=== PATIENT | male | born 1940 | race Caucasian/White ===

== ENCOUNTER 2020-07-07 09:35 | Inpatient (IN) | payer MEDICARE, OTHER ==
[~2020-07-07] VITALS: Ht 172.7 cm; Wt 90.5 kg
[~2020-07-07 09:35] MED LIST: ATROPINE EYE RIGHTEYE; DORZ10DR7 RIGHTEYE; GLYCOPYRROLATE 0.2MG/1ML, 5ML ONE; PRED5DRO2 RIGHTEYE
[2020-07-07] MEDS ORDERED: LIDOCAINE-MPF 1%, 2ML INFIL ONE (10:00)
[2020-07-07] MEDS ORDERED: LACTATED RINGERS 1,000 ML IV SCH (10:00)
[2020-07-07] MEDS ORDERED: CHLORHEXIDINE 15 ML UDC MM ONE (10:00)
[2020-07-07] MEDS ORDERED: FENTANYL PF 250 MCG/5ML ONE (10:21)
[2020-07-07] MEDS ORDERED: PROPOFOL 10 MG/ML, 20ML ONE (10:27)
[2020-07-07] MEDS ORDERED: CEFAZOLIN 1,000 MG ONE (10:27)
[2020-07-07] MEDS ORDERED: GEMCITABINE HCL 1,000 MG in SODIUM CHLORIDE 0.9% 23.7 ML IV ONE (11:00)
[2020-07-07] MEDS ORDERED: HYDROmorphone 1 MG/ML, 1ML INJ IVPush PRN (11:30)
[2020-07-07] MEDS ORDERED: morphine SULFATE 10 MG/ML, 1ML IVPush PRN (11:30)
[2020-07-07] MEDS ORDERED: OXYcodone 5 MG/5 ML ORAL.SOL UDC PO PRN (11:30)
[2020-07-07] MEDS ORDERED: ONDANSETRON 2MG/ML, 2ML IVPush PRN (11:30)
[2020-07-07] MEDS ORDERED: ACETAMINOPHEN 325 MG TABLET PO PRN ×2 (11:30→15:30)
[2020-07-07] MEDS ORDERED: LABETALOL 5MG/ML, 20ML IV PRN (11:30)
[2020-07-07] MEDS ORDERED: MEPERIDINE/PF 25MG/0.5ML IVPush PRN (11:30)
[2020-07-07] MEDS ORDERED: FENTANYL PF 100 MCG/2ML IV PRN (11:30)
[2020-07-07] MEDS ORDERED: OPIUM/BELLADONNA SUPP.RECT 16.2-60 MG ONE (12:10)
[2020-07-07] MEDS ORDERED: ENALAPRILAT 1.25 MG/ML, 2ML IV PRN (12:30)
[2020-07-07] MEDS: hydrALAzine 20 MG/ML, 1ML IV PRN ×2 (12:35→13:33)
[2020-07-07] MEDS ORDERED: OPIUM/BELLADONNA SUPP.RECT 16.2-30 MG PR PRN (15:30)
[2020-07-07] MEDS ORDERED: ONDANSETRON 2MG/ML, 2ML IV PRN (15:30)
[2020-07-07] MEDS ORDERED: HYDROcodone/APAP 5/325 TABLET PO PRN (15:30)
[2020-07-07] MEDS: SODIUM CHLORIDE 0.9% 1,000 ML IV SCH (16:16)
[2020-07-07 19:30] VITALS: BP 139/78
[2020-07-07] MEDS: CEFAZOLIN PMX 1GM/50ML 50 ML IVPB SCH (19:30)
[2020-07-07] MEDS: DORZOLAMIDE RIGHTEYE SCH (20:28)
[2020-07-07] MEDS: TIMOLOL OPTHALMIC RIGHTEYE SCH (20:28)
[2020-07-07] MEDS: OPTHALMIC RIGHTEYE SCH (20:34)
[2020-07-07] MEDS: PREDNISOLONE ACETATE 1% RIGHTEYE SCH (20:34)
[2020-07-07] MEDS ORDERED: ATROPINE OPHTH SOLN 1%, 5ML RIGHTEYE SCH (21:00)
[2020-07-08 00:17] VITALS: BP 118/73
[2020-07-08 03:49] VITALS: BP 121/64
[2020-07-08] MEDS: CEFAZOLIN PMX 1GM/50ML 50 ML IVPB SCH (03:49)
[2020-07-08 06:46] LABS: ANION GAP 9 mmol/L (5-15); CALCIUM 8.8 mg/dL (8.5-10.1); CHLORIDE 108 mmol/L (98-107)
[2020-07-08 07:56] VITALS: BP 121/74
[2020-07-08] MEDS: DORZOLAMIDE RIGHTEYE SCH (08:40)
[2020-07-08] MEDS: TIMOLOL OPTHALMIC RIGHTEYE SCH (08:40)
[2020-07-08] MEDS: PREDNISOLONE ACETATE 1% RIGHTEYE SCH (08:45)
[2020-07-08] MEDS: OPTHALMIC RIGHTEYE SCH (08:45)
[2020-07-08] MEDS: SODIUM CHLORIDE 0.9% 1,000 ML IV SCH (11:30)
[2020-07-08 13:41] VITALS: BP 180/90
== END 2020-07-08 15:40 | disposition home or self-care (01) | DRG 670 ==
LOC: OUT 09:35 → 3WST 14:30 → OUT 14:44
PROVIDERS: ADMIT Urology; ATTEND Urology
PROC: 0TBB8ZZ Excision of Bladder, Via Natural or Artificial Opening Endoscopic (ICD-10-PCS; principal; 2020-07-07 11:30)
DX: C67.9 Malignant neoplasm of bladder, unspecified (principal); N40.0 Benign prostatic hyperplasia without lower urinary tract symptoms
CPT/HCPCS: 36415; 80048; 87635; 88307; 93005; G0378; J0690; J2405; J2704; J3010; J9201; J0360; J7030; J7120

== ENCOUNTER 2020-10-06 10:38 | Day surgery (SDC) | payer MEDICARE, OTHER ==
[2020-10-04 15:16] VITALS: BP 177/95
[2020-10-04 16:16] LABS: BASOPHILS % (AUTO) 1 % (0-1); EOSINOPHILS % (AUTO) 2 % (1-7); LYMPHOCYTES % (AUTO) 30 % (22-44); MEAN CORPUSCULAR HEMOGLOBIN 32.6 pg (27.5-34.5); MEAN CORPUSCULAR HGB CONC 34.5 g/dL (33.2-36.2); MEAN PLATELET VOLUME 8.8 fL (7.4-10.4); MONOCYTES % (AUTO) 9 % (2-9); NEUTROPHILS % (AUTO) 59 % (42-75); PLATELET COUNT 232 x10^3/uL (130-400); RED BLOOD COUNT 4.88 x10^6/uL (4.38-5.82); RED CELL DISTRIBUTION WIDTH 12.9 % (9.4-14.8)
[2020-10-04 16:19] LABS: MICROSCOPIC NOT IND
[2020-10-04 16:22] LABS: ANION GAP 3 mmol/L (5-15); CHLORIDE 109 mmol/L (98-107); CREATININE 1.05 mg/dL (0.7-1.3)
[2020-10-04 16:25] LABS: MD NO
[2020-10-04 16:37] LABS: INTERNATIONAL NORMALIZED RATIO 1.13 (0.93-1.1)
[~2020-10-06] VITALS: Ht 172.7 cm; Wt 86.0 kg
[~2020-10-06 10:38] MED LIST changes: +AMLO-211 PO; +CYCL15DR RIGHTEYE; -GLYCOPYRROLATE 0.2MG/1ML, 5ML ONE
[2020-10-06 10:58] VITALS: BP 177/95
[2020-10-06] MEDS ORDERED: LACTATED RINGERS 1,000 ML IV SCH (11:00)
[2020-10-06] MEDS ORDERED: CHLORHEXIDINE 15 ML UDC MM ONE (11:00)
[2020-10-06] MEDS ORDERED: FENTANYL PF 100 MCG/2ML ONE (12:18)
[2020-10-06] MEDS ORDERED: GEMCITABINE HCL 1,000 MG in SODIUM CHLORIDE 0.9% 23.7 ML IS ONE (12:30)
[2020-10-06] MEDS ORDERED: ONDANSETRON 2MG/ML, 2ML ONE (12:32)
[2020-10-06] MEDS ORDERED: CEFAZOLIN 1,000 MG ONE (12:32)
[2020-10-06] MEDS ORDERED: SUCCINYLCHOLINE 20 MG/ML, 10ML ONE (12:32)
[2020-10-06] MEDS ORDERED: DEXAMETHASONE 4 MG/ML, 1ML ONE (12:32)
[2020-10-06] MEDS ORDERED: LIDOCAINE-MPF 2% ,5ML ONE (12:32)
[2020-10-06] MEDS ORDERED: ROCURONIUM 10MG/ML,5ML ONE (12:32)
[2020-10-06] MEDS ORDERED: PROPOFOL 10 MG/ML, 20ML ONE (12:32)
[2020-10-06] MEDS ORDERED: SUGAMMADEX 200 MG/2 ML IVPush ONE (12:32)
[2020-10-06] MEDS ORDERED: KETOROLAC 30 MG/1 ML ONE (12:39)
[2020-10-06] MEDS ORDERED: GLYCOPYRROLATE 0.2MG/1ML, 5ML ONE (13:00)
[2020-10-06] MEDS ORDERED: OPIUM/BELLADONNA SUPP.RECT 16.2-60 MG ONE (13:03)
[2020-10-06] MEDS ORDERED: EPHEDRINE 50 MG/ML, 1ML IVPush PRN (13:30)
[2020-10-06] MEDS ORDERED: HYDROmorphone 1 MG/ML, 1ML INJ IVPush PRN (13:30)
[2020-10-06] MEDS ORDERED: OXYcodone 5 MG/5 ML ORAL.SOL UDC PO PRN (13:30)
[2020-10-06] MEDS ORDERED: FENTANYL PF 100 MCG/2ML IV PRN (13:30)
[2020-10-06] MEDS ORDERED: ONDANSETRON 2MG/ML, 2ML IVPush PRN (13:30)
[2020-10-06] MEDS ORDERED: LABETALOL 5MG/ML, 20ML IV PRN (13:30)
[2020-10-06] MEDS ORDERED: hydrALAzine 20 MG/ML, 1ML IV PRN (13:30)
[2020-10-06] MEDS ORDERED: ACETAMINOPHEN 325 MG TABLET PO PRN (13:30)
[2020-10-06] MEDS ORDERED: PROMETHAZINE 25 MG/ML, 1ML IVPush PRN (13:30)
[2020-10-06] MEDS ORDERED: hydrALAzine 20 MG/ML, 1ML ONE (14:03)
== END 2020-10-06 17:05 | disposition home or self-care (01) ==
LOC: OUT 10:38
PROVIDERS: ATTEND Urology
DX: C67.2 Malignant neoplasm of lateral wall of bladder (principal); N40.0 Benign prostatic hyperplasia without lower urinary tract symptoms; I10 Essential (primary) hypertension; F17.290 Nicotine dependence, other tobacco product, uncomplicated; Z20.822 Contact with and (suspected) exposure to COVID-19; Z79.899 Other long term (current) drug therapy; Z98.890 Other specified postprocedural states
CPT/HCPCS: 36415; 51720; 52234; 80048; 81003; 85025; 85610; 87086; 88305; 93005; J0330; J0360; J0690; J1100; J1885; J2405; J2704; J3010; J7120; J9201; U0003